=== PATIENT | male | born 1970 | race Two or more races ===

== ENCOUNTER 2016-06-13 14:53 | Emergency (ER) | payer OTHER ==
[2016-06-13 15:01] VITALS: BP 139/87; PULSE 81; TEMP 98.4; BMI 23.7
--- NOTE | 2016-06-13 15:12 | PDOC ---
History of Present Illness - General Chief Complaint: Injury Stated Complaint: LACERATION TO HEAD Time Seen by Provider: 06/13/16 15:02 History Source: Patient Exam Limitations: No Limitations - History of Present Illness Initial Comments: CHIEF COMPLAINT: 45 y/o afebrile male with no significant PMH c/o laceration to top of head. 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 He denies LOC, neck pain, SOOD, dizziness, changes in vision/hearing, n/v/d, CP, SOB. He does not think he's had a tetanus shot in a "very long time". Vital signs on arrival are within normal limits. REVIEW OF SYSTEMS: GENERAL/CONSTITUTIONAL: no fever/chills. No weakness. No weight change. HEAD, EYES, EARS, NOSE AND THROAT: No change in vision. No ear pain or discharge. No sore throat. SKIN: No rash or easy bruising. +laceration to top of head. NEUROLOGIC: No headache, vertigo, loss of consciousness, or loss of sensation. PHYSICAL EXAM: GENERAL: The patient is awake, alert, and fully oriented, in no acute distress. He is ambulatory. HEAD: 6cm linear laceration to top of scalp. No battles signs. EYES: Pupils equal, round and reactive to light, extraocular movements intact, sclera anicteric, conjunctiva clear. No hemotympanum b/l. No raccoon eyes. EXTREMITIES: Normal range of motion, no edema. NEUROLOGICAL: Normal speech, normal gait. CN II-XII grossly intact. PSYCH: Normal mood, normal affect. SKIN: 6cm linear superficial laceration to the top of the scalp with minimal bleeding. Very well approximated margins. Past History - Past Medical History Allergies/Adverse Reactions: Allergies Allergy/AdvReac Type Severity Reaction Status Date / Time No Known Allergies Allergy Verified 06/13/16 15:01 Home Medications: Ambulatory Orders NK [No Known Home Medication] 06/13/16 Other medical history: PATIENT DENIES MEDICAL HX - Psycho/Social/Smoking Cessation Hx Suicidal Ideation: No Smoking History: Never smoked Hx Alcohol Use: Yes (OCCASIONALLY) Drug/Substance Use Hx: No *Physical Exam - Vital Signs Last Vital Signs Temp Pulse Resp BP Pulse Ox 98.4 F 81 18 139/87 97 06/13/16 14:57 06/13/16 14:57 06/13/16 14:57 06/13/16 14:57 06/13/16 14:57 Procedures - Laceration/Wound Repair Head Wound Length: 5.0 to 7.5 cm Wound Explored: clean Wound's Depth, Shape: superficial, linear Irrigated w/ Saline: Yes Betadine Prep: Yes Wound Repaired With: [place] Number of Sutures: 7 Medical Decision Making - Medical Decision Making A/P: 45 y/o afebrile male with laceration to top of head. Plan is as follows: 1. Lac repair with bryan 2. Tetanus 3. PO Motrin The patient tolerated the stapling well. I instructed him to keep the area dry for 24 hours then gently wash with soap and water. Instructed him to take Motrin for pain and return to the ER in 5 days for staple removal. Instructed him to return to the ER immediately with any concerning symptoms, including dizziness, SOOD, vomiting, etc. The patient verbalizes understanding of all instructions, has no further questions and is awaiting discharge. *DC/Admit/Observation/Transfer Diagnosis at time of Disposition: Laceration of head Qualifiers: Encounter type: initial encounter Location of open wound of head: scalp Foreign body presence: without foreign body Qualified Code(s): S01.01XA - Laceration without foreign body of scalp, initial encounter - Discharge Dispostion Disposition: HOME Condition at time of disposition: Improved - Referrals Referrals: Maria Dolores Duenas [Primary Care Provider] - - Patient Instructions Printed Discharge Instructions: DI for Closed Head Injury, DI for Laceration Repair -- [place] Additional Instructions: Discharge Instructions: -Keep area dry for 24 hours -Gently wash area with soap and water to keep clean after 24 hours -You were given a tetanus immunization today; it is good for 10 years -Take 600mg of Motrin every 6 hours for pain. -Return to the ER in 5 days to have bryan removed -Return to the ER immediately with any worsening or concerning symptoms, including changes in vision/hearing, intractable vomiting or any other concerning symptoms. - Post Discharge Activity Work/School Note: Back to Work
[2016-06-13] MEDS: IBUPROFEN 600 MG TABLET (FP) PO ONE (15:38)
[2016-06-13] MEDS: TETANUS AND DIPHTHERIA TOXOID 0.5 ML DISP.SYRIN IM ONE (15:44)
== END 2016-06-13 15:46 | disposition home or self-care (01) ==
LOC: JERFT 14:53
PROC: 3E0234Z Introduction of Serum, Toxoid and Vaccine into Muscle, Percutaneous Approach (ICD-10-PCS; principal; 2016-06-13)
PROC: 0HQ0XZZ Repair Scalp Skin, External Approach (ICD-10-PCS; 2016-06-13)
DX: S01.01XA Laceration without foreign body of scalp, initial encounter (principal); W26.1XXA Contact with sword or dagger, initial encounter; Y93.H3 Activity, building and construction; Y92.61 Building [any] under construction as the place of occurrence of the external cause; Y99.0 Civilian activity done for income or pay
CPT/HCPCS: 99281-25

== ENCOUNTER 2016-06-18 19:39 | Emergency (ER) | payer OTHER ==
[2016-06-18 19:55] VITALS: BP 130/64; PULSE 67; TEMP 98; BMI 24.4
--- NOTE | 2016-06-18 20:45 | PDOC ---
History of Present Illness - General Chief Complaint: Suture/Staple Removal(Here) Stated Complaint: STITCHES REMOVAL History Source: Patient Exam Limitations: No Limitations - History of Present Illness Initial Comments: 06/18/16 20:59 Pt here for staple removal. Placed 5 days previous. No complication and no current symptoms. Tetanus utd. Severity: mild Modifying Factors: worse with: cold therapy, eating, immobilization, medication , movement, rest, other Associated Symptoms: denies: denies symptoms, chest pain, cough, diaphoresis, fever/chills, headaches, loss of appetite, malaise, nausea/vomiting, rash, seizure, shortness of breath, syncope, weakness, other Past History - Travel Traveled outside of the country in the last 30 days: No Close contact w/someone who was outside of country & ill: No - Past Medical History Allergies/Adverse Reactions: Allergies Allergy/AdvReac Type Severity Reaction Status Date / Time No Known Allergies Allergy Verified 06/18/16 19:55 Home Medications: Ambulatory Orders NK [No Known Home Medication] 06/13/16 - Psycho/Social/Smoking Cessation Hx Suicidal Ideation: No Smoking History: Never smoked Hx Alcohol Use: No Drug/Substance Use Hx: No Substance Use Type: None Review of Systems - Review of Systems Able to Perform ROS?: Yes Is the patient limited Welsh proficient: No Constitutional: No: Chills, Fever, Loss of Appetite HEENTM: No: Blurred Vision, Double Vision Cardiac (ROS): No: Chest Pain, Palpitations ABD/GI: No: Nausea, Vomiting Integumentary: Yes: See HPI Neurological: No: Headache, Numbness *Physical Exam - Vital Signs Last Vital Signs Temp Pulse Resp BP Pulse Ox 98.0 F 67 18 130/64 98 06/18/16 19:53 06/18/16 19:53 06/18/16 19:53 06/18/16 19:53 06/18/16 19:53 - Physical Exam General Appearance: Yes: Nourished. No: Appropriately Dressed, Apparent Distress HEENT: positive: EOMI, JENN, Normal Voice, Symmetrical Neck: positive: Trachea midline, Supple Cardiovascular: negative: JVD Musculoskeletal: positive: Normal Inspection Extremity: positive: Normal Capillary Refill, Normal Inspection Integumentary: positive: Normal Color, Dry, Warm, Other ([address], removed intact; no wound dehisence, no sign of infection.) Procedures - Additional Procedures Additional Procedures: other (staple removal) Medical Decision Making - Medical Decision Making 06/18/16 21:11 45yo M with need for staple removal. No complication. He is encouraged to continue covering with bacitracin as needed and follow up with PMD as well. *DC/Admit/Observation/Transfer Diagnosis at time of Disposition: Visit for suture removal, Encounter for removal of bryan - Discharge Dispostion Disposition: HOME Condition at time of disposition: Good Admit: No Decision to Admit order Date/Time: 06/18/16 20:44 - Referrals Referrals: Maria Dolores Duenas [Primary Care Provider] - - Patient Instructions Additional Instructions: Please follow up with your PMD within the next 48 hours and if there is any change otherwise in symptoms, please return immediately to the ED.
[2016-06-18] MEDS ORDERED: BACITRACIN 15 GM TUBE TOPICAL OINTMENT TP ONE (20:52)
== END 2016-06-18 21:00 | disposition home or self-care (01) ==
LOC: JER 19:39
DX: Z48.02 Encounter for removal of sutures (principal)
CPT/HCPCS: 99282-25

== ENCOUNTER 2018-02-10 17:59 | Emergency (ER) | payer SELFPAY ==
[2018-02-10 18:11] VITALS: BP 108/59; PULSE 86; TEMP 98.4; BMI 24.4
[2018-02-10] MEDS ORDERED: BACITRACIN 15 GM TUBE TOPICAL OINTMENT TP ONE (19:00)
--- NOTE | 2018-02-10 19:00 | PDOC ---
History of Present Illness - General Chief Complaint: Laceration Stated Complaint: HEAD INJURY Time Seen by Provider: 02/10/18 18:44 History Source: Patient Exam Limitations: No Limitations Past History - Travel Traveled outside of the country in the last 30 days: No Close contact w/someone who was outside of country & ill: No - Past Medical History Allergies/Adverse Reactions: Allergies Allergy/AdvReac Type Severity Reaction Status Date / Time No Known Allergies Allergy Verified 06/18/16 21:06 Home Medications: Ambulatory Orders NK [No Known Home Medication] 06/13/16 COPD: No Disorders: No Liver Disease: No - Surgical History Cardiac Surgery: No GI Surgery: No - Immunization History Td Vaccination: Yes TDAP Vaccination: Yes Immunization Up to Date: Yes - Suicide/Smoking/Psychosocial Hx Smoking History: Never smoked Have you smoked in the past 12 months: No Information on smoking cessation initiated: No Hx Alcohol Use: No Drug/Substance Use Hx: No Substance Use Type: None Review of Systems - Review of Systems Able to Perform ROS?: Yes Is the patient limited Stateless proficient: Yes Constitutional: Yes: Symptoms Reported, See HPI, Malaise HEENTM: Yes: Symptoms Reported, See HPI, Other (scalp laceration ) Respiratory: No: Symptoms reported All Other Systems: Reviewed and Negative *Physical Exam - Vital Signs Last Vital Signs Temp Pulse Resp BP Pulse Ox 98.4 F 86 18 108/59 L 98 02/10/18 18:09 02/10/18 18:09 02/10/18 18:09 02/10/18 18:09 02/10/18 18:09 - Physical Exam General Appearance: Yes: Nourished, Appropriately Dressed, Apparent Distress, Mild Distress HEENT: positive: JENN, Normal ENT Inspection, TMs Normal, Other (3cm stellate laceration to scalp, no crepitus or stepoff/ no bleeding from nose or ears / no evidence of skull fx ) Neck: positive: Supple. negative: Tender Respiratory/Chest: positive: Lungs Clear, Respiratory Distress Gastrointestinal/Abdominal: positive: Soft. 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 NML intact, Fully Oriented, Alert, Normal Mood/ Affect, Normal Response Moderate Sedation - Procedure Monitoring Vital Signs: Procedure Monitoring Vital Signs Temperature 98.4 F 02/10/18 18:09 Pulse Rate 86 02/10/18 18:09 Respiratory Rate 18 02/10/18 18:09 Blood Pressure 108/59 L 02/10/18 18:09 O2 Sat by Pulse Oximetry (%) 98 02/10/18 18:09 Procedures - Laceration/Wound Repair Head Wound Length: 2.6 to 5.0 cm Wound's Depth, Shape: superficial, stellate Irrigated w/ Saline: Yes Betadine Prep: Yes Anesthesia: 1% Lidocaine w/ Epi Wound Debrided: minimal Wound Repaired With: [place] Number of Sutures: 3 Progress Note - Progress Note Progress Note: Scalp laceration repaired with bryan *DC/Admit/Observation/Transfer Diagnosis at time of Disposition: Laceration of head Qualifiers: Encounter type: initial encounter Location of open wound of head: scalp Foreign body presence: without foreign body Qualified Code(s): S01.01XA - Laceration without foreign body of scalp, initial encounter - Discharge Dispostion Disposition: HOME Condition at time of disposition: Stable Decision to Admit order: No - Referrals - Patient Instructions Printed Discharge Instructions: DI for Closed Head Injury Additional Instructions: Rest, no exercise or gym until bryan are removed May use ice packs tonight as needed for swelling and pain Put a towel over pillow/old pillowcase to avoid damage from bacitracin and bleeding to linens until bryan removed Use antibiotic cream/ointment once in the morning once at night until bryan are removed May use Tylenol or Motrin for pain relief Return to emergency department for worsening pain, swelling, bleeding, or evidence of serious head injury Staple removal in 5-7 days - Post Discharge Activity Forms/Work/School Notes: Back to Work
[2018-02-10] MEDS ORDERED: IBUPROFEN 600 MG TABLET (FP) PO ONE ×2 (19:01→19:08)
== END 2018-02-10 19:11 | disposition home or self-care (01) ==
LOC: JERFT 17:59
PROC: 0HQ0XZZ Repair Scalp Skin, External Approach (ICD-10-PCS; principal; 2018-02-10)
DX: S01.01XA Laceration without foreign body of scalp, initial encounter (principal); W45.8XXA Other foreign body or object entering through skin, initial encounter; Y93.89 Activity, other specified; Y92.89 Other specified places as the place of occurrence of the external cause
CPT/HCPCS: 99281-25

== ENCOUNTER 2018-02-17 16:31 | Emergency (ER) | payer SELFPAY ==
--- NOTE | 2018-02-17 16:49 | PDOC ---
Rapid Medical Evaluation Medical Evaluation: Allergies Allergy/AdvReac Type Severity Reaction Status Date / Time No Known Allergies Allergy Verified 06/18/16 21:06 02/17/18 16:51 I have performed a brief in-person evaluation of this patient. The patient presents with a chief complaint of:staple removal Pertinent physical exam findings: scalp lac well healed. I have ordered the following: nothing The patient will proceed to the ED for further evaluation.
[2018-02-17 16:53] VITALS: BP 100/55; PULSE 77; TEMP 98; BMI 24.4
--- NOTE | 2018-02-17 16:59 | PDOC ---
Suture Removal/Wound Check HPI - History of Present Illness Chief Complaint: Suture/Staple Removal(Here) Stated Complaint: Suture/Staple Removal(Here) Time Seen by Provider: 02/17/18 16:57 History Source: Yes: Patient Exam Limitations: Yes: No Limitations Treated at: [facility] ED - Previous ED Treatment Type of procedure performed on last visit: Yes: Laceration Repair Tetanus Immunization: Yes: Up to Date Past History - Past Medical History Allergies/Adverse Reactions: Allergies Allergy/AdvReac Type Severity Reaction Status Date / Time No Known Allergies Allergy Verified 02/17/18 16:51 Home Medications: Ambulatory Orders NK [No Known Home Medication] 06/13/16 COPD: No Disorders: No Liver Disease: No - Surgical History Cardiac Surgery: No GI Surgery: No - Immunization History Td Vaccination: Yes TDAP Vaccination: Yes Immunization Up to Date: Yes - Suicide/Smoking/Psychosocial Hx Smoking History: Never smoked Have you smoked in the past 12 months: No Hx Alcohol Use: No Drug/Substance Use Hx: No Substance Use Type: None Suture Removal/Wound Check PE - Physical Exam Laceration/Wound Check Symptoms: reports: None Current Severity Level: None Maximum Severity Level: None Pain Localization: None *Physical Exam - Vital Signs Last Vital Signs Temp Pulse Resp BP Pulse Ox 98.0 F 77 18 100/55 L 100 02/17/18 16:51 02/17/18 16:51 02/17/18 16:51 02/17/18 16:51 02/17/18 16:51 - Physical Exam General Appearance: Yes: Nourished, Appropriately Dressed. No: Apparent Distress HEENT: positive: JENN, Normal ENT Inspection, Normal Voice, TMs Normal, Pharynx Normal Moderate Sedation - Procedure Monitoring Vital Signs: Procedure Monitoring Vital Signs Temperature 98.0 F 02/17/18 16:51 Pulse Rate 77 02/17/18 16:51 Respiratory Rate 18 02/17/18 16:51 Blood Pressure 100/55 L 02/17/18 16:51 O2 Sat by Pulse Oximetry (%) 100 02/17/18 16:51 *DC/Admit/Observation/Transfer Diagnosis at time of Disposition: Removal of staple - Discharge Dispostion Disposition: HOME Condition at time of disposition: Stable Decision to Admit order: No - Referrals - Patient Instructions Printed Discharge Instructions: DI for Suture Removal - Post Discharge Activity Forms/Work/School Notes: Back to Work
== END 2018-02-17 18:04 | disposition home or self-care (01) ==
LOC: JERFT 16:31
CPT/HCPCS: 99281-25

== ENCOUNTER 2022-08-09 20:59 | Emergency (ER) | payer SELFPAY ==
[2022-08-09 21:06] VITALS: BP 113/69; PULSE 69; RESP 18; TEMP 98.5; BMI 23.7
[2022-08-09] MEDS ORDERED: METOCLOPRAMIDE HCL INJECTION 10 MG/2 ML VIAL IVPB ONE (21:39)
[2022-08-09] MEDS ORDERED: ACETAMINOPHEN 1000 MG/100 ML BAG IVPB ONE (21:39)
[2022-08-09] MEDS ORDERED: SODIUM CHLORIDE 0.9% 500 ML INFUS.BAG IV ONE (21:39)
[2022-08-09] MEDS ORDERED: METOCLOPRAMIDE HCL INJECTION 10 MG/2 ML VIAL ONE (21:52)
[2022-08-09] MEDS ORDERED: ACETAMINOPHEN INJECTION 100 ML IVPB ONE (21:52)
[2022-08-09 22:18] LABS: BASO % 0.2 % (0-2.0); HEMOGLOBIN 15.9 GM/dL (11.7-16.9); LYMPH % 7.2 % (8-40); MCHC 33.8 g/dl (32.0-35.9); MEAN CELL VOLUME 91.7 fl (80-96); MONO % 3.8 % (3.8-10.2); NEUT % 88.8 % (42.8-82.8); PLATELET COUNT 195 10^3/uL (134-434); RBC 5.12 M/mm3 (4.00-5.60); RDW 13.2 % (11.9-15.9); WHITE BLOOD COUNT 12.6 K/mm3 (4.0-10.0)
[2022-08-09 22:36] LABS: POTASSIUM 4.9 mmol/L (3.5-5.1)
[2022-08-09 22:38] LABS: BLOOD UREA NITROGEN 13.5 mg/dL (7-18); CALCIUM 9.7 mg/dL (8.5-10.1)
[2022-08-09 22:39] LABS: ALBUMIN 4.4 g/dl (3.4-5.0); MAGNESIUM 2.2 mg/dL (1.8-2.4)
[2022-08-09] MEDS ORDERED: KETOROLAC TROMETHAMINE 15 MG/ML VIAL IVPUSH ONE (23:00)
[2022-08-09] MEDS ORDERED: LIDOCAINE 5% TOPICAL PATCH TP ONE (23:00)
[2022-08-09 23:03] LABS: BILIRUBIN,TOTAL 0.4 mg/dL (0.2-1); CREATININE 0.8 mg/dL (0.55-1.3); TOT PROT 7.7 g/dl (6.4-8.2)
[2022-08-09] MEDS ORDERED: LIDOCAINE 5% TOPICAL PATCH ONE (23:07)
[2022-08-09] MEDS ORDERED: KETOROLAC TROMETHAMINE 15 MG/ML VIAL ONE (23:08)
== END 2022-08-09 23:27 | disposition home or self-care (01) ==
LOC: JER 20:59
PROC: 3E033NZ Introduction of Analgesics, Hypnotics, Sedatives into Peripheral Vein, Percutaneous Approach (ICD-10-PCS; principal; 2022-08-09)
PROC: 3E0333Z Introduction of Anti-inflammatory into Peripheral Vein, Percutaneous Approach (ICD-10-PCS; 2022-08-09)
PROC: 3E033GC Introduction of Other Therapeutic Substance into Peripheral Vein, Percutaneous Approach (ICD-10-PCS; 2022-08-09)
DX: R11.2 Nausea with vomiting, unspecified (principal); R51.9 Headache, unspecified; M54.2 Cervicalgia; F12.90 Cannabis use, unspecified, uncomplicated; R68.83 Chills (without fever); Z20.822 Contact with and (suspected) exposure to COVID-19
CPT/HCPCS: 0241U-QW; 36415; 80053; 83690; 83735; 85025; 93005; 93010; 99284-25